=== PATIENT | male | born 1980 | race American Indian/Alaskan Native ===

== ENCOUNTER 2019-03-26 09:07 | Emergency (ER) | payer OTHER ==
--- NOTE | 2019-03-26 10:50 | Emergency Department Report ---
ED General Adult HPI - General Chief complaint: Extremity Injury, Lower Stated complaint: SPIDER BITE LT LOWER LEG, with warmth and swelling Source: patient Mode of arrival: Ambulatory Limitations: No Limitations - History of Present Illness Initial comments: 38yo M states that he L calf pain that has increased along with swelling and warmth. He also states that he has increased L calf pain with walking. -: Gradual, days(s) (began 1 day ago) Location: lower extremity (L gastrocnemius) Radiation: non-radiation Severity scale (0 -10): 6 Quality: aching, constant Consistency: constant Worsens with: movement Associated Symptoms: denies other symptoms Treatments Prior to Arrival: none - Related Data Previous Rx's Medication Instructions Recorded Last Taken Type Apixaban [Eliquis starter pack] 5 mg PO BID 30 Days #72 [email or web address] 03/26/19 Unknown Rx Allergies Allergy/AdvReac Type Severity Reaction Status Date / Time No Known Allergies Allergy Verified 03/26/19 11:24 ED Review of Systems ROS: Stated complaint: SPIDER BITE LT LOWER LEG Other details as noted in HPI Comment: All other systems reviewed and negative Constitutional: denies: chills, fever Eyes: denies: eye pain, eye discharge, vision change ENT: denies: ear pain, throat pain Respiratory: denies: cough, shortness of breath, wheezing Cardiovascular: denies: chest pain, palpitations Endocrine: no symptoms reported Gastrointestinal: denies: abdominal pain, nausea, diarrhea Genitourinary: denies: urgency, dysuria Musculoskeletal: as per HPI, back pain, joint swelling, arthralgia Skin: denies: rash, lesions Neurological: denies: headache, weakness, paresthesias Psychiatric: denies: anxiety, depression Hematological/Lymphatic: denies: easy bleeding, easy bruising ED Past Medical Hx - Past Medical History Previous Medical History?: No - Surgical History Past Surgical History?: No - Social History Smoking Status: Current Every Day Smoker Substance Use Type: Alcohol - Medications Home Medications: Home Medications Medication Instructions Recorded Confirmed Last Taken Type Apixaban [Eliquis starter pack] 5 mg PO BID 30 Days #72 [email or web address] 03/26/19 Unknown Rx ED Physical Exam - General Limitations: No Limitations General appearance: alert, in no apparent distress - Head Head exam: Present: atraumatic, normocephalic - Eye Eye exam: Present: normal appearance - ENT ENT exam: Present: mucous membranes moist - Neck Neck exam: Present: normal inspection - Respiratory Respiratory exam: Present: normal lung sounds bilaterally. Absent: respiratory distress - Cardiovascular Cardiovascular Exam: Present: regular rate, normal rhythm. Absent: systolic murmur, diastolic murmur, rubs, gallop - GI/Abdominal GI/Abdominal exam: Present: soft, normal bowel sounds - Rectal Rectal exam: Present: deferred - Extremities Exam Extremities exam: Present: tenderness - Expanded Lower Extremity Exam Left Lower Leg exam: Present: tenderness (tenderness of calf upon squeezing and ambulating, calf has increased warmth) Neuro vascular tendon exam: Present: no vascular compromise Gait: Positive: antalgic (L leg) ED Course Vital Signs 03/26/19 03/26/19 09:12 11:56 Temperature 98.5 F Pulse Rate 88 81 Respiratory 20 16 Rate Blood Pressure 131/81 Blood Pressure 130/80 [Left] O2 Sat by Pulse 99 99 Oximetry ED Medical Decision Making - Medical Decision Making 38yo M states that he L calf pain that has increased along with swelling and warmth. He also states that he has increased L calf pain with walking. A L lower extremity doppler study was order that gave a positive finding of DVT locates in the L popliteal, Bilateral posterior veins and one perineal vein of the L leg. The patient was started on Eliquis and instructed to see primary care. He was also instructed to see ER as needed if symptoms worsen and as needed. Critical care attestation.: If time is entered above; I have spent that time in minutes in the direct care of this critically ill patient, excluding procedure time. ED Disposition Clinical Impression: DVT (deep venous thrombosis) Qualifiers: DVT location: lower extremity Chronicity: acute Laterality: left Disposition: DC-01 TO HOME OR SELFCARE Is pt being admited?: No Does the pt Need Aspirin: No Condition: Stable Instructions: Deep Venous Thrombosis (ED) Additional Instructions: The patient was explained that he has DVT, started on Eliquis and instructed to see primary care. He was also instructed to see ER as needed if symptoms worsen and as needed. Prescriptions: Apixaban [Eliquis starter pack] 5 mg PO BID 30 Days #72 [email or web address] Referrals: PRIMARY CARE, [Primary Care Provider] - 3-5 Days Time of Disposition: 11:49
[2019-03-26] MEDS ORDERED: ADRENALINE P/F ONE ×2 (11:21→11:22)
[2019-03-26 11:57] VITALS: BP 130/80
--- NOTE | 2019-03-26 13:14 | Vascular Lab Report ---
DUPLEX DOPPLER LOWER EXTREMITY VEINS, LEFT INDICATION: L calf pain. Generalized left lower extremity pain and swelling for the past 2 days TECHNIQUE: Duplex doppler imaging was performed through the veins of the left lower extremity using venous compr ession and other maneuvers. COMPARISON: No relevant prior imaging study available. FINDINGS: Left Common femoral vein: Negative. Left Superficial femoral vein: Negative. Left Popliteal vein: Occlusive thrombus. Left Calf veins: Occlusive thrombus in one of 2 peroneal veins in both gastrocnemius veins. Additional findings: None.. IMPRESSION: 1. Positive for DVT in the left lower extremity as above. Findings were called to DYLAN Méndez after the exam by the cargo service agent. Signer Name: Bassam Saavedra MD Signed: 03/26/2019 1:10 PM Workstation Name: [id number]
== END 2019-03-26 11:56 | disposition home or self-care (01) ==
LOC: ED 09:07
DX: I82.4Z2 Acute embolism and thrombosis of unspecified deep veins of left distal lower extremity (principal); F17.200 Nicotine dependence, unspecified, uncomplicated; Z79.899 Other long term (current) drug therapy
CPT/HCPCS: J0171